=== PATIENT | male | born 1950 | race Hispanic/Latino ===

== ENCOUNTER 2016-12-17 17:21 | Emergency (ER) | payer MEDICARE, OTHER ==
[2016-12-17 17:29] VITALS: BMI 25.5
--- NOTE | 2016-12-17 19:38 | ED PDOC ---
Arrival/HPI - General Chief Complaint: Weakness/Neurological Deficit Time Seen by Provider: 12/17/16 19:05 Historian: Patient - History of Present Illness Narrative History of Present Illness (Text): 12/17/16 19:03 A 66 year old male, whose past medical history includes heroine abuse, hepatitis C and bladder cancer, presents to the emergency department complaining of feel weak and tired for the past 4 days. Patient notes feeling cold, having since congestion and begin nausea but denies any fever, chest pain , shortness of breath, abdominal pain or other complaints at this time. Patient mentions she started taking Suboxone 4 days ago. PMD: Dr. Tyler Time/Duration: Other (4 days) Symptom Onset: Sudden Symptom Course: Unchanged Quality: Other Activities at Onset: Rest Context: Home Past Medical History - Provider Review Nursing Documentation Reviewed: Yes - Infectious Disease Hx of Infectious Diseases: None - Hematological/Oncological Hx Hepatitis C: Yes - Psychiatric Hx Substance Use: Yes Family/Social History - Physician Review Nursing Documentation Reviewed: Yes Family/Social History: Unknown Family HX Smoking Status: Current Some Days Smoker Hx Alcohol Use: Yes Hx Substance Use: Yes Substance used: herroine Allergies/Home Meds Allergies/Adverse Reactions: Allergies No Known Allergies Allergy (Verified 11/29/16 08:45) Home Medications: Home Meds Medication Instructions Recorded Confirmed Buprenorphine HCl/Naloxone HCl 4 mg SL Q4 PRN 12/17/16 12/17/16 [Suboxone 4 mg-1 mg Sl Film] Review of Systems - Physician Review All systems were reviewed & negative as marked: Yes - Review of Systems Constitutional: Fatigue, Other (feeling cold). absent: Fevers ENT: Sinus Congestion Respiratory: absent: SOB Cardiovascular: absent: Chest Pain Gastrointestinal: Nausea. absent: Abdominal Pain, Vomiting Physical Exam Vital Signs Reviewed: Yes Vital Signs Temp Pulse Resp BP Pulse Ox 12/17/16 19:21 100.1 F H 12/17/16 17:21 99.2 F 62 18 148/86 94 L Temperature: Afebrile Blood Pressure: Normal Pulse: Regular Respiratory Rate: Normal Appearance: Positive for: Comfortable, Ill-Appearing Pain Distress: None Mental Status: Positive for: Alert and Oriented X 3 - Systems Exam Head: Present: Atraumatic, Normocephalic Pupils: Present: PERRL Extroacular Muscles: Present: EOMI Conjunctiva: Present: Normal Mouth: Present: Moist Mucous Membranes Neck: Present: Normal Range of Motion Respiratory/Chest: Present: Clear to Auscultation, Good Air Exchange. No: Respiratory Distress, Accessory Muscle Use Cardiovascular: Present: Regular Rate and Rhythm, Normal S1, S2. No: Murmurs Abdomen: Present: Normal Bowel Sounds. No: Tenderness, Distention, Peritoneal Signs Back: Present: Normal Inspection Upper Extremity: Present: Normal Inspection. No: Cyanosis, Edema Lower Extremity: Present: Normal Inspection. No: Edema Neurological: Present: GCS=15, CN II-XII Intact, Speech Normal Skin: Present: Warm, Dry, Normal Color. No: Rashes Psychiatric: Present: Alert, Oriented x 3, Normal Insight, Normal Concentration Medical Decision Making ED Course and Treatment: 12/17/16 19:03 Impression: A 66 year old male with generalized weakness. Differential Diagnosis include but are not limited to: Hepatitis Flare vs. opioid withdrawal vs viral illness vs gastritis Plan: -- EKG -- Chest X-ray -- Labs -- Urinalysis -- Reassess and disposition Progress Notes: Patient with no fever and otherwise unremarkable vitals. No leukocytosis is noted. Chemistry shows LFT elevation c/w his chronic hepatitis C. CT a/p with findings c/w duodenitis but otherwise negative. Patient feels better here in the ED and says he has an appointment with GI next week - will d/c on PPI and have him f/u pmd and GI. - Lab Interpretations Lab Results: 12/17/16 15:45 12/17/16 15:45 Lab Results 12/17/16 19:43: Urine Opiates Screen Negative, Urine Methadone Screen Negative, Ur Barbiturates Screen Negative, Ur Phencyclidine Scrn Negative, Ur Amphetamines Screen Negative, U Benzodiazepines Scrn Negative, U Oth Cocaine Metabols Negative, U Cannabinoids Screen Negative 12/17/16 19:43: Urine Color Yellow, Urine Appearance Sl cloudy, Urine pH 6.0, Ur Specific [place] 1.020, Urine Protein Trace H, Urine Glucose (UA) Negative, Urine Ketones Trace H, Urine Blood Large H, Urine Nitrate Negative, Urine Bilirubin Negative, Urine Urobilinogen 4.0 H, Ur Leukocyte Esterase Negative, Urine RBC 25 - 30, Urine WBC 2 - 5, Ur Epithelial Cells 0 - 2, Amorphous Sediment Few, Urine Bacteria Many, Urine Other Uyeast 12/17/16 19:40: pO2 23 L, VBG pH 7.40, VBG pCO2 48.0, VBG HCO3 29.7 H, VBG Total CO2 31.2 H, VBG O2 Sat (Calc) 44.7, VBG Base Excess 4.0 H, VBG Potassium 3.7, Glucose 105, Lactate 1.4, FiO2 21.0, Sodium 138.0, Chloride 104.0, Venous Blood Potassium 3.7 12/17/16 15:45: Sodium 139, Potassium 3.9, Chloride 98, Carbon Dioxide 29, Anion Gap 16, BUN 25 H, Creatinine 0.6, Est GFR ( Amer) > 60, Est GFR ( Non-Af Amer) > 60, Random Glucose 101, Calcium 10.0, Phosphorus 3.6, Magnesium 2.3 H, Total Bilirubin 3.0 H, AST 70 H, ALT 75 H, Alkaline Phosphatase 72, Lactate Dehydrogenase 404, Total Creatine Kinase 36, Troponin I < 0.01, NT-Pro- B Natriuret Pep 485 H, Total Protein 9.4 H, Albumin 4.7, Globulin 4.7, Albumin/ Globulin Ratio 1.0 L, Lipase 144 12/17/16 15:45: PT 11.2, INR 1.04, APTT 28.7 12/17/16 15:45: WBC 8.2 D, RBC 5.46, Hgb 18.1 H* D, Hct 50.3, MCV 92.1, MCH 33.2, MCHC 36.0, RDW 13.3, Plt Count 179, MPV 11.3 H, Gran % 69.9 H, Lymph % ( Auto) 18.2 L, [place] % (Auto) 11.7 H, Eos % (Auto) 0.1 L, Baso % (Auto) 0.1, Gran # 5.75, Lymph # 1.5, [place] # 1.0 H, Eos # 0.0, Baso # 0.01 I have reviewed the lab results: Yes - RAD Interpretation Radiology Orders: 12/17/16 19:07 CHEST PORTABLE [RAD] Stat 12/17/16 20:27 ABD & PELVIS IV CONTRAST ONLY [CT] Stat - Medication Orders Current Medication Orders: Discontinued Medications Famotidine (Pepcid) 20 mg IVP STAT STA Stop: 12/17/16 20:40 Last Admin: 12/17/16 20:53 Dose: 20 mg Sodium Chloride (Sodium Chloride 0.9%) 1,000 mls @ 999 mls/hr IV .Q1H1M STA Stop: 12/17/16 21:18 Last Admin: 12/17/16 20:58 Dose: 999 mls/hr Iohexol (Omnipaque 350 100 Ml) Confirm Administered Dose 350 mg .ROUTE .STK-MED ONE Stop: 12/17/16 20:33 Ketorolac Tromethamine (Toradol) 30 mg IVP STAT STA Stop: 12/17/16 20:39 Last Admin: 12/17/16 20:53 Dose: 30 mg Ondansetron HCl (Zofran Inj) 4 mg IVP STAT STA Stop: 12/17/16 20:39 Last Admin: 12/17/16 20:53 Dose: 4 mg - Scribe Statement The provider has reviewed the documentation as recorded by the Yrn Orantes Provider Oliviaibe Attestation: All medical record entries made by the Yrn were at my direction and personally dictated by me. I have reviewed the chart and agree that the record accurately reflects my personal performance of the history, physical exam, medical decision making, and the department course for this patient. I have also personally directed, reviewed, and agree with the discharge instructions and disposition. Disposition/Present on Arrival - Present on Arrival Any Indicators Present on Arrival: No History of DVT/PE: No History of Uncontrolled Diabetes: No Urinary Catheter: No History of Decub. Ulcer: No History Surgical Site Infection Following: None - Disposition Have Diagnosis and Disposition been Completed?: Yes Diagnosis: Duodenitis Disposition: HOME/ ROUTINE Disposition Time: 23:15 Patient Plan: Discharge Condition: GOOD Discharge Instructions (ExitCare): Duodenitis (ED), Diet for Ulcers and Gastritis (ED) Additional Instructions: Avoid alcohol and drug use. Drink plenty of fluids. Recommend a more bland diet as well. Take the medications as prescribed. Follow up with your primary care doctor and Dr. Keller as scheduled. Return to the emergency department if any new concerning symptoms. Prescriptions: Pantoprazole [Protonix] 1 tab PO DAILY #20 ect Referrals: Jayson AWAN,Oliver Pool MD [Primary Care Provider] - Follow up with primary
[2016-12-17 19:40] LABS: ADD MANUAL DIFF? NO
[2016-12-17 20:00] LABS: URINE BILIRUBIN NEGATIVE (NEGATIVE); URINE GLUCOSE (UA) NEGATIVE (NEGATIVE); URINE LEUKOCYTE ESTERASE NEGATIVE Leu/uL (NEGATIVE)
[2016-12-17 20:01] LABS: BASO # 0.01 K/mm3 (0.0-2.0); BASO % 0.1 % (0.0-3.0); EOS % 0.1 % (1.5-5.0); GRAN # 5.75 (1.4-6.5); GRAN % 69.9 % (50.0-68.0); HEMATOCRIT 50.3 % (42.0-52.0); LYMPH # 1.5 (1.2-3.4); LYMPH % 18.2 % (22.0-35.0); MEAN CELL VOLUME 92.1 fL (80.0-105.0); MEAN CORPUSCULAR HEMOGLOBIN 33.2 pg (25.0-35.0); MEAN PLATELET VOLUME 11.3 fl (7.0-11.0); MONO % 11.7 % (1.0-6.0); PLATELET COUNT 179 10^3/uL (120.0-450.0); RED CELL DISTRIBUTION WIDTH 13.3 % (11.5-14.5); WHITE BLOOD COUNT 8.2 10^3/ul (4.5-11.0)
[2016-12-17 20:02] LABS: ALKALINE PHOSPHATASE 72 U/L (38-133); ALT/SGPT 75 U/L (7-56); AST/SGOT 70 U/L (15-59); BLOOD UREA NITROGEN 25 mg/dL (7-21); CARBON DIOXIDE 29 mmol/L (21-33); CHLORIDE 98 mmol/L (98-107); GFR AFRICAN-AMERICAN > 60; GLUCOSE,RANDOM 101 mg/dL (70-110); LIPASE 144 U/L (23-300); MAGNESIUM 2.3 mg/dL (1.7-2.2); PHOSPHOROUS 3.6 mg/dL (2.5-4.5); POTASSIUM 3.9 mmol/L (3.6-5.0); SODIUM 139 mmol/L (132-148); TOTAL PROTEIN 9.4 g/dL (5.8-8.3)
[2016-12-17 20:08] LABS: INR 1.04 (0.93-1.08); PARTIAL THROMBOPLASTIN TIME 28.7 Seconds (23.7-30.8)
[2016-12-17 20:11] LABS: URINE APPEARANCE SL CLOUDY (CLEAR)
[2016-12-17 20:12] LABS: URINE KETONE TRACE mg/dL (NEGATIVE)
[2016-12-17 20:13] LABS: URINE BLOOD LARGE (NEGATIVE); URINE PROTEIN TRACE mg/dL (<30 mg/dL)
[2016-12-17 20:14] LABS: TROPONIN I < 0.01 ng/mL
[2016-12-17 20:15] LABS: URINE COLOR YELLOW (YELLOW)
[2016-12-17] MEDS ORDERED: Sodium Chloride 0.9% 1,000 ML IV STA (20:18)
[2016-12-17 20:32] LABS: URINE BACTERIA MANY (NEG); URINE EPITHELIAL CELLS 0 - 2 /hpf (0-5); URINE RBC 25 - 30 /hpf (0-2)
[2016-12-17] MEDS ORDERED: Iohexol 350 MG/100 ML VIAL ONE (20:32)
[2016-12-17 20:33] LABS: URINE AMORPHOUS SEDIMENT FEW
--- NOTE | 2016-12-17 22:13 | CT ---
EXAM: CT Abdomen and Pelvis With Intravenous Contrast CLINICAL HISTORY: 66 years old, male; Pain; Abdominal pain; Prior surgery; Surgery type: Bowel resection; Additional info: Nausea, abd discomfort TECHNIQUE: Axial computed tomography images of the abdomen and pelvis with intravenous contrast. This CT exam was performed using one or more of the following dose reduction techniques: automated exposure control, adjustment of the mA and/or kV according to patient size, and/or use of iterative reconstruction technique. Coronal and sagittal reformatted images were created and reviewed. CONTRAST: 94 mL of OMNI 350 administered intravenously. COMPARISON: CT - ABDOMEN,PELVIS W/WO CONTRAST 11/17/2016 10:21:50 AM FINDINGS: Lower thorax: Mild atelectasis/scarring. ABDOMEN: Liver: Unremarkable. No mass. Gallbladder and bile ducts: Calcified gallstone. No ductal dilation. Pancreas: No ductal dilation. No mass. Spleen: No splenomegaly. Adrenals: Mild hypertrophy of adrenal glands, stable. Kidneys and ureters: Few too small to characterize lesions within kidneys. Few small renal calculi. No hydronephrosis. Stomach and bowel: Small bladder diverticulum. Postsurgical changes of sigmoid colon. Moderate mural thickening of duodenum. Mild stranding within adjacent fat. No obstruction. Appendix: No findings to suggest acute appendicitis. PELVIS: Bladder: Unremarkable. Reproductive: Unremarkable as visualized. ABDOMEN and PELVIS: Intraperitoneal space: No significant fluid collection. No free air. Bones/joints: Mild chronic compression deformities T12, L5 vertebral bodies. Soft tissues: Few small ventral hernias containing fat. Small umbilical hernia containing fat. Tiny inguinal hernias containing fat. Vasculature: Mild atherosclerotic disease. No abdominal aortic aneurysm. Lymph nodes: No pathologically enlarged lymph nodes. IMPRESSION: 1. Findings compatible with duodenitis. Clinical correlation is needed. 2. Incidental/non-acute findings are described above.
[2016-12-18 01:48] VITALS: BP 145/92; PULSE 55; RESP 17; TEMP 98.2; O2SAT 98
--- NOTE | 2016-12-18 07:48 | RAD ---
HISTORY: Sepsis Patient COMPARISON: 11/29/2016 FINDINGS: LUNGS: Central and upper lobe emphysematous changes are suggested -similar appearing. Trace minimal apical pleural thickening is also suspect -unchanged. No interval consolidation suggested. PLEURA: As above. No pneumothorax CARDIOVASCULAR: Normal heart size. Tortuous and partly calcified thoracic aorta OSSEOUS STRUCTURES: Thoracic spondylosis and generalized osteopenia VISUALIZED UPPER ABDOMEN: Normal. OTHER FINDINGS: None. IMPRESSION: No active disease. . Emphysema inferred
--- NOTE | 2016-12-18 12:53 | CARD ---
APPROVED REPORT EKG Measurement Heart [id number] <Conclusion> Sinus bradycardia with premature atrial complexes with aberrant conduction Possible Left atrial enlargement Borderline ECG
== END 2016-12-18 01:48 | disposition home or self-care (01) ==
LOC: ED 17:21
DX: K29.80 Duodenitis without bleeding (principal); B19.20 Unspecified viral hepatitis C without hepatic coma; F11.10 Opioid abuse, uncomplicated
CPT/HCPCS: 71010; 74177; 80053; 81001; 82550; 82803; 83615; 83690; 83735; 83880; 84100; 84484; 85025; 85610; 85730; 87040; 93005; 96361; 96374; 96375; 99285; G0480; J1885; J2405; J7040; Q9967

== ENCOUNTER 2017-01-13 07:52 | Day surgery (SDC) | payer MEDICARE, OTHER ==
[2017-01-13] MEDS ORDERED: Midazolam 2 MG/2 ML VIAL ONE (10:42)
[2017-01-13] MEDS ORDERED: Propofol 10 mg/ml Inj (20 ML) ONE ×2 (10:42→11:08)
[2017-01-13] MEDS ORDERED: Liquid Adhesive TOP ONE (10:42)
[2017-01-13] MEDS ORDERED: cefTRIAXone (Rocephin) 1 gm Inj ONE (10:42)
[2017-01-13] MEDS ORDERED: Lidocaine 2% Inj (20ml) ONE (10:45)
[2017-01-13] MEDS ORDERED: Lactated Ringer's 1,000 ML IV SCH (11:57)
[2017-01-13 12:37] VITALS: TEMP 97.9
--- NOTE | 2017-01-13 13:17 | OP ---
PROCEDURE DATE: 01/13/2017 PREOPERATIVE DIAGNOSIS: Bladder tumors. POSTOPERATIVE DIAGNOSIS: Bladder tumors. PROCEDURE: Cystoscopy, transurethral resection and fulguration of multiple bladder tumors. ATTENDING SURGEON: Dr. Sunny Pike ANESTHESIA: General. SPECIMENS: Bladder tumor chips were sent to pathology. DRAINS: A 22-[place] 3-way Peña catheter. COMPLICATIONS: There were none. OPERATIVE FINDINGS: After informed consent was obtained, the patient was taken to the operating room and placed on the operating table and anesthesia was administered. The patient was then placed in t he dorsal lithotomy position and prepped and draped in usual sterile fashion. The patient received i ntravenous antibiotics prior to start of the procedure. A 26-Belizean resectoscope with a visualizing obturator was placed in the patient's urethra and advanced proximally under direct vision until the b ladder was entered. A full survey inspection of bladder was then performed, which revealed multiple papillary bladder tumors. The tumors appeared low lying, most likely low grade. They were located o n the right bladder neck and right floor extending onto the right sidewall. They were on the posteri or wall and the right upper side wall. There were a few small satellite tumors on the left posterior wall. Both ureteral orifices were visualized and appeared away from the areas of tumor. There was a large diverticulum noted on the right posterior wall. There was tumor lining the wall of the diver ticulum and inside the diverticulum there was also papillary tumor noted. At this point, using the r esecting loop, the larger tumor burden on the right lateral wall into the right bladder neck area was resected. The patient was having an obturator reflex, so care was taken to control the depth. Tumo r was able to be resected in its entirety. In total, there was over a 7 cm area of the bladder which was covered with tumor. After the bulk of the larger tumor had been resected, the loop was changed to a rollerball electrode. The base of the larger tumor burden was then completely fulgurated. The surrounding areas with some superficial papillary growth were also fulgurated. Any remaining superfi cial tumor which was noted was fulgurated using the rollerball along with the areas of surrounding no rmal mucosa. An evacuating device was then used to remove the tumor chips and debris from the bladde r, which were sent to pathology as a specimen. A final inspection was made. Any small bleeding poin ts again were controlled using the rollerball electrode. There were no chips or debris remaining in the bladder and at this point, the procedure was completed. The tumor in the diverticulum had been c ompletely fulgurated using the rollerball along with the tumor on the wall of the diverticulum. Both ureteral orifices were visualized. They had not been resected or cauterized. At this point, the re sectoscope was removed. A 22-[place]an 3-way Peña catheter was passed and placed to continuous bladder irrigation. The patient tolerated the procedure well and was taken to the recovery room awake and i n stable condition. Sunny Pike MD cc: [phone] TT: 01/13/2017 13:16:50 sn
[2017-01-13 14:51] VITALS: BP 124/79; PULSE 78; RESP 18; O2SAT 97
== END 2017-01-13 16:00 | disposition home or self-care (01) ==
LOC: SDS 07:52
PROVIDERS: ATTEND Urology
DX: D49.4 Neoplasm of unspecified behavior of bladder (principal); R31.9 Hematuria, unspecified; I49.9 Cardiac arrhythmia, unspecified; F17.200 Nicotine dependence, unspecified, uncomplicated; K75.9 Inflammatory liver disease, unspecified; F10.10 Alcohol abuse, uncomplicated; F19.10 Other psychoactive substance abuse, uncomplicated
CPT/HCPCS: 52234; 88307; G0480 ×8; J0131; J0696; J2250; J2405; J2704; J3010; J7120 ×2

== ENCOUNTER 2017-01-14 19:42 | Inpatient (IN) | payer MEDICARE, OTHER ==
[2017-01-14 19:43] VITALS: BMI 25.5
--- NOTE | 2017-01-14 22:38 | ED PDOC ---
Arrival/HPI - General Chief Complaint: Male Genitourinary Time Seen by Provider: 01/14/17 20:01 Historian: Patient - History of Present Illness Narrative History of Present Illness (Text): 01/14/17 22:38 Ramez Overton is a 66 year old male, with a history of heroin use, hepatitis C and bladder cancer, presents to the emergency department complaining of suprapubic pressure and decreased urinary output. Patient had a cystoscopy done by yesterday and had a Mccormick catheter placed after the procedure. Patient states he has decreased urine output since. Denies any fever, chills, headache, dizziness, chest pain, shortness of breath, nausea, vomiting, diarrhea , or any other complaints at this time. Time/Duration: < week Symptom Onset: Gradual Activities at Onset: Light Context: Home Past Medical History - Provider Review Nursing Documentation Reviewed: Yes - Infectious Disease Hx of Infectious Diseases: None - Cardiac Hx Pacemaker: No - Neurological Hx Paralysis: No - Hematological/Oncological Hx Blood Transfusions: No - Musculoskeletal/Rheumatological Hx Musculoskeletal Disorders: No - Psychiatric Hx Emotional Abuse: No Hx Physical Abuse: No Hx Substance Use: Yes (ACTIVE IV HEROIN USE("NONE X 3 WEEKS WITH 1-MISHAP")) - Anesthesia Hx Anesthesia Reactions: No Hx Malignant Hyperthermia: No - Suicidal Assessment Feels Threatened In Home Enviroment: No Family/Social History - Physician Review Nursing Documentation Reviewed: Yes Family/Social History: No Known Family HX Smoking Status: Current Some Days Smoker Hx Alcohol Use: Yes Hx Substance Use: Yes (ACTIVE IV HEROIN USE("NONE X 3 WEEKS WITH 1-MISHAP")) Substance used: herroine Allergies/Home Meds Allergies/Adverse Reactions: Allergies No Known Allergies Allergy (Verified 11/29/16 08:45) Home Medications: Home Meds Medication Instructions Recorded Confirmed Buprenorphine HCl/Naloxone HCl 4 mg SL BID 12/17/16 01/15/17 [Suboxone 4 mg-1 mg Sl Film] Multivit-Min/FA/Lycopen/Lutein 1 tab PO DAILY 01/07/17 01/15/17 [Centrum Silver Men Tablet] [place]-3 Fatty Acids/Fish Oil 1 cap PO DAILY 01/07/17 01/15/17 [[place] 3 Fish Oil Softgel] Review of Systems - Physician Review All systems were reviewed & negative as marked: Yes - Review of Systems Constitutional: Normal. absent: Fatigue, Fevers Respiratory: Normal. absent: SOB, Cough Cardiovascular: Normal. absent: Chest Pain, Palpitations Gastrointestinal: Abdominal Pain (suprapubic pressure). absent: Diarrhea, Nausea, Vomiting Genitourinary Male: Urinary Output Changes (decreased urinary output ) Neurological: Normal. absent: Headache, Dizziness Psychiatric: Normal Physical Exam Vital Signs Reviewed: Yes Vital Signs Temp Pulse Resp BP Pulse Ox 01/15/17 04:04 98.5 F 01/15/17 02:30 96 H 18 155/84 H 95 01/14/17 23:09 89 16 135/91 H 96 01/14/17 19:44 98.2 F 78 18 138/74 100 Temperature: Afebrile Blood Pressure: Normal Pulse: Regular Respiratory Rate: Normal Appearance: Positive for: Well-Appearing, Non-Toxic, Comfortable Pain Distress: None Mental Status: Positive for: Alert and Oriented X 3 - Systems Exam Head: Present: Atraumatic, Normocephalic Pupils: Present: PERRL Conjunctiva: Present: Normal Mouth: Present: Moist Mucous Membranes Respiratory/Chest: Present: Clear to Auscultation, Good Air Exchange. No: Respiratory Distress, Accessory Muscle Use Cardiovascular: Present: Regular Rate and Rhythm, Normal S1, S2. No: Murmurs Abdomen: Present: Normal Bowel Sounds. No: Tenderness, Distention, Peritoneal Signs, Rebound Genitourinary Male: Present: Other (mccormick catheter. ). No: Lesions, Penile Discharge, Testicle Tenderness, Penile Swelling, Masses, Erythema, Hernias Upper Extremity: Present: Normal Inspection. No: Cyanosis, Edema Lower Extremity: Present: Normal Inspection. No: Edema Neurological: Present: GCS=15, CN II-XII Intact, Speech Normal, Motor Func Grossly Intact, Normal Sensory Function Skin: Present: Warm, Dry, Normal Color. No: Rashes Psychiatric: Present: Alert, Oriented x 3, Normal Insight, Normal Concentration Medical Decision Making ED Course and Treatment: 01/14/17 22:49 Impression: A 66 year old male who presents to the emergency department complaining of suprapubic pressure and decreased urinary output. kami d/w dr horner will obs for dehydration Plan: -- Bladder scan. -- Reassess and disposition Progress Notes: 01/15/17 04:20 - Lab Interpretations Lab Results: 01/14/17 23:45 01/14/17 23:45 Lab Results 01/14/17 23:50: Urine Color Red, Urine Appearance Cloudy, Urine pH 6.5, Ur Specific [place] 1.020, Urine Protein >=300 H, Urine Glucose (UA) Negative, Urine Ketones 15 H, Urine Blood Large H, Urine Nitrate Positive H, Urine Bilirubin Small H, Urine Urobilinogen 1.0 H, Ur Leukocyte Esterase Moderate H, Urine RBC 15 - 20, Urine WBC 10 - 15, Ur Epithelial Cells 0 - 2, Urine Bacteria Mod 01/14/17 23:45: Sodium 128 L, Potassium 4.7, Chloride 96 L, Carbon Dioxide 22, Anion Gap 15, BUN 36 H, Creatinine 2.1 H, Est GFR ( Amer) 39, Est GFR ( Non-Af Amer) 32, Random Glucose 127 H, Calcium 9.7, Total Bilirubin 1.5 H, AST 44, ALT 83 H, Alkaline Phosphatase 101, Total Protein 8.1, Albumin 4.1, Globulin 4.0, Albumin/Globulin Ratio 1.0 L 01/14/17 23:45: WBC 13.7 H D, RBC 4.93, Hgb 16.3, Hct 43.6, MCV 88.4, MCH 33.1, MCHC 37.4 H, RDW 13.0, Plt Count 225, MPV 10.6, Neutrophils % (Manual) 88 H, Band Neutrophils % 1, Lymphocytes % (Manual) 6 L, Monocytes % (Manual) 5, Platelet Evaluation Normal - Medication Orders Current Medication Orders: Acetaminophen (Tylenol 325mg Tab) 650 mg PO Q4H PRN PRN Reason: Fever >100.5 F Cefepime HCl (Maxipime 1gm) 1 gm in 100 mls @ 100 mls/hr IVPB Q24H ERICH PRN Reason: Protocol Last Admin: 01/15/17 03:18 Dose: 100 mls/hr Sodium Chloride (Sodium Chloride 0.9%) 1,000 mls @ 100 mls/hr IV .Q10H STA Stop: 01/15/17 13:02 - Scribe Statement The provider has reviewed the documentation as recorded by the Yrn Andrews Provider Attestation: All medical record entries made by the Oliviaibe were at my direction and personally dictated by me. I have reviewed the chart and agree that the record accurately reflects my personal performance of the history, physical exam, medical decision making, and the department course for this patient. I have also personally directed, reviewed, and agree with the discharge instructions and disposition. Disposition/Present on Arrival - Present on Arrival Any Indicators Present on Arrival: No History of DVT/PE: No History of Uncontrolled Diabetes: No Urinary Catheter: No History of Decub. Ulcer: No History Surgical Site Infection Following: None - Disposition Have Diagnosis and Disposition been Completed?: Yes Diagnosis: Dehydration, Urinary tract infection Disposition: HOSPITALIZED Disposition Time: 01:00 Condition: FAIR
[2017-01-14 23:56] LABS: HEMATOCRIT 43.6 % (42.0-52.0); MEAN CELL VOLUME 88.4 fL (80.0-105.0); MEAN CORPUSCULAR HEMOGLOBIN 33.1 pg (25.0-35.0); MEAN CORPUSCULAR HGB CONC 37.4 g/dl (31.0-37.0); MEAN PLATELET VOLUME 10.6 fl (7.0-11.0); PLATELET COUNT 225 10^3/uL (120.0-450.0); WHITE BLOOD COUNT 13.7 10^3/ul (4.5-11.0)
[2017-01-15 00:07] LABS: BILIRUBIN,TOTAL 1.5 mg/dL (0.2-1.3); CALCIUM 9.7 mg/dL (8.4-10.5); POTASSIUM 4.7 mmol/L (3.6-5.0); TOTAL PROTEIN 8.1 g/dL (5.8-8.3)
[2017-01-15 00:33] LABS: ADD MANUAL DIFF? YES
[2017-01-15 00:59] LABS: PH,URINE 6.5 (4.7-8.0); URINE BILIRUBIN SMALL (NEGATIVE); URINE BLOOD LARGE (NEGATIVE); URINE GLUCOSE (UA) NEGATIVE (NEGATIVE); URINE KETONE 15 mg/dL (NEGATIVE); URINE LEUKOCYTE ESTERASE MODERATE Leu/uL (NEGATIVE); URINE PROTEIN >=300 mg/dL (<30 mg/dL)
[2017-01-15 01:17] LABS: URINE APPEARANCE CLOUDY (CLEAR); URINE COLOR RED (YELLOW)
[2017-01-15 01:19] LABS: URINE EPITHELIAL CELLS 0 - 2 /hpf (0-5); URINE RBC 15 - 20 /hpf (0-2)
[2017-01-15 01:20] LABS: URINE BACTERIA MOD (NEG)
[2017-01-15 01:22] LABS: BAND 1 % (0-2); NEUTROPHIL 88 % (50.0-70.0); PLATELET ESTIMATE NORMAL (NORMAL)
[2017-01-15] MEDS ORDERED: Cefepime 1gm in NS 100ml 1 GM/100 ML BAG IVPB SCH (01:30)
[2017-01-15] MEDS ORDERED: Sodium Chloride 0.9% 1,000 ML IV STA (03:03)
[2017-01-15] MEDS ORDERED: Morphine 2 mg/ml ISec IM PRN (07:57)
[2017-01-15] MEDS ORDERED: Morphine 2 mg/ml ISec IVP PRN (08:14)
[2017-01-15] MEDS ORDERED: Vancomycin 1gm in NS 250ml 1 GM/250 ML BAG IVPB STA (09:44)
[2017-01-15] MEDS: Cefepime 1gm in NS 100ml 1 GM/100 ML BAG IVPB SCH ×2 (10:01→22:44)
[2017-01-15] MEDS: Sodium Chloride 0.9% 1,000 ML IV SCH (10:16)
--- NOTE | 2017-01-15 11:50 | HP ---
HISTORY OF PRESENT ILLNESS: The patient is a 66-year-old man with a past medical history of newly diagnosed high-grade papillary urothelial carcinoma and hepatitis C (untreated) who presented to [facility] Emergency Department 1 day after undergoing cystoscopy with TURBT for evaluation of gross hematuria. The patient has been closely followed by Dr. Chavez of urology for his complaint of gross hematuria. The patient was found to have a bladder mass and arrangements were made to schedule for a cystoscopy with biopsy which the patient successfully underwent on Friday (01/13/2017). Final pathology report demonstrated high-grade papillary urothelial carcinoma. The patient was discharged to home with no complications noted during the time of the procedure. Shortly after discharge to home, he developed mild suprapubic tenderness and over the course of the next several hours developed increasing discomfort associated with subjective fevers and chills. He also reported persistent drainage of initially bloody urine which subsequently changed to a tea colored urine. Given the intensity of the pain, he called 911 and was brought to the Emergency Department for further evaluation. Upon arrival to the ED, he was noted to be afebrile and hemodynamically stable however initial laboratory studies demonstrated leukocytosis with a WBC of 13.7 with left shift , as well as acute kidney injury with a BUN of 36 and creatinine of 2.1. The patient was started on IV antibiotics, IV fluid hydration and subsequently admitted to the general medical [facility] for continued management. PAST MEDICAL HISTORY: As per HPI, also, history of atrial fibrillation s/p cardioversion, diverticulosis with perforation s/p partial colectomy, s/p colostomy with reversal and history of chest tube placement secondary to empyema. ALLERGIES: No known drug allergies. MEDICATIONS: [place] 3 fatty acid 1 capsule daily, multivitamin 1 capsule daily, Protonix 40 mg p.o. daily and Suboxone 4 mg sublingual b.i.d. FAMILY HISTORY: Noncontributory. SOCIAL HISTORY: The patient reports former IV heroin use (last use approximately 3 weeks ago) and social alcohol use. He denies tobacco use. REVIEW OF SYSTEMS: A 14 point review of systems is negative except as per HPI. PHYSICAL EXAMINATION: VITAL SIGNS: Temperature 98.3, pulse 102, blood pressure 129/84, respiratory rate 20, oxygen saturation 95% on room air. GENERAL: Elderly man appearing his stated age, lying in bed in mild distress secondary to suprapubic tenderness. HEENT: Normocephalic, atraumatic, PERRL, EOMI, no scleral icterus, no conjunctival pallor. NECK: No JVD, no bruits. LUNGS: Clear to auscultation. CARDIOVASCULAR: Regular rate and rhythm. Normal S1 and S2. ABDOMEN: Normoactive bowel sounds. Soft, tender to palpation to lower abdomen with voluntary guarding. No rigidity, no tympany. GENITOURINARY: Peña catheter remains in place with no oozing or discharge from the urethral meatus and jhon colored urine is noted in the Peña catheter bag. EXTREMITIES: No edema. NEUROLOGIC: Awake, alert and oriented x 3. No focal motor deficits. LABORATORY DATA: WBC 13.7 with 88% neutrophils, hemoglobin 16, hematocrit 44, platelets 225. Sodium 128, potassium 4.7, chloride 96, bicarbonate 22, BUN 36, creatinine 2.1, glucose 127. Urinalysis demonstrates red cloudy urine with large blood, positive nitrites and moderate leukocyte esterase. ASSESSMENT: The patient is a 66-year-old man who recently underwent cystoscopy with transurethral resection of bladder tumor for evaluation of gross hematuria secondary to bladder mass, who was subsequently found to have high-grade papillary urothelial carcinoma who presented to [facility] with increased suprapubic pain and who was admitted to the general medical luther for continued analgesic control. PLAN: 1. High grade papillary urothelial carcinoma, status post cystoscopy. Dr. Pike of urology has been consulted for further evaluation and recommendations and to ensure that there are no complications post-procedure given the patient's presentation with significant pain. The patient has been started on morphine 2 mg IV q. 4 hours p.r.n. pain. 2. Hepatitis C. The patient has been newly diagnosed with hepatitis C and has not initiated treatment. His most recent viral load was greater than 7.7 million. The patient has been referred to Dr. Keller of gastroenterology for initiation of treatment; however, he will need to remain off IV drugs prior to initiation of treatment. Genotype is pending. The patient does not appear to be decompensated from the hepatitis standpoint. 3. Systemic inflammatory response syndrome, etiology likely secondary to genitourinary source given recent instrumentation. The patient has been started on cefepime. We will consult Dr. Moctezuma for further evaluation and recommendations. Procalcitonin level has been ordered and pending. 4. Acute kidney injury. Labs demonstrate a BUN of 36 and a creatinine of 2.1, whereas labs obtained preoperatively demonstrated normal renal function. As above, Dr. Pike has been consulted for evaluation for possible obstructive uropathy. We will continue with gentle IV fluid hydration and monitor strict ins and outs. 5. Hyponatremia, etiology likely secondary to poor p.o. intake. Continue with normal saline at 125 mL per hour. 6. Heroin dependence. The patient states that he has been sober for the past 2 -1/2 to 3 weeks. He is on Suboxone on outpatient basis; however, given that we will be acutely treating his pain with morphine, the patient was explained that he will not require Suboxone at the same time. 7. Atrial fibrillation, status post cardioversion. The patient remains in normal sinus rhythm and is not on any anticoagulation therapy. 8. Prophylaxis. Continue with Protonix for GI prophylaxis. DVT prophylaxis not indicated as the patient is ambulatory. CODE STATUS: Full code. Oliver Tyler MD cc: [phone] TT: 01/15/2017 11:49:53 akbar EDOUARD
[2017-01-15] MEDS ORDERED: Morphine 2 mg/ml ISec IVP STA (12:11)
[2017-01-15] MEDS: Morphine 4 mg/ml ISec IVP PRN ×3 (15:03→22:51)
--- NOTE | 2017-01-15 17:15 | CP.PCM.CON ---
History of Present Illness - History of Present Illness History of Present Illness: 66 year old male with PMH of hepatitis C, active heroin use, bladder cancer had cystoscopy done by Dr. Pike and a Peña was placed afterwards. Since the procedure he has been complaining of suprapubic pain and decreased urine output. He also noted some hematuria. The patient denies fever or chills, no nausea or vomiting, no flank pain, no headache or dizziness, no chest pain, no SOB, no cough or colds, no dysphagia, no abdominal pain. Infectious Diseases consult is requested to further evaluate and manage. Review of Systems - Review of Systems All systems: reviewed and no additional remarkable complaints except (as per HPI ) Past Patient History - Infectious Disease Hx of Infectious Diseases: None - Past Social History Smoking Status: Former Smoker - CARDIAC Hx Pacemaker: No - NEUROLOGICAL Hx Paralysis: No - HEMATOLOGICAL/ONCOLOGICAL Hx Hepatitis C: Yes - MUSCULOSKELETAL/RHEUMATOLOGICAL Hx Musculoskeletal Disorders: No Hx Falls: Yes - PSYCHIATRIC Hx Emotional Abuse: No Hx Physical Abuse: No Other/Comment: substance abuse: active heroin user - SURGICAL HISTORY Hx Surgeries: Yes - ANESTHESIA Hx Anesthesia Reactions: No Hx Malignant Hyperthermia: No Meds Allergies/Adverse Reactions: Allergies Allergy/AdvReac Type Severity Reaction Status Date / Time No Known Allergies Allergy Verified 11/29/16 08:45 - Medications Medications: Current Medications Acetaminophen (Tylenol 325mg Tab) 650 mg PO Q4H PRN PRN Reason: Fever >100.5 F Cefepime HCl (Maxipime 1gm) 1 gm in 100 mls @ 100 mls/hr IVPB Q24H ERICH PRN Reason: Protocol Last Admin: 01/15/17 03:18 Dose: 100 mls/hr Sodium Chloride (Sodium Chloride 0.9%) 1,000 mls @ 125 mls/hr IV .Q8H [facility] Stop: 01/17/17 08:46 Morphine Sulfate (Morphine) 2 mg IVP Q4H PRN PRN Reason: Pain, severe (8-10) Pantoprazole Sodium (Protonix Inj) 40 mg IVP DAILY [facility] Physical Exam - Constitutional Appears: Non-toxic, No Acute Distress - Head Exam Head Exam: NORMAL INSPECTION - ENT Exam ENT Exam: Mucous Membranes Moist - Neck Exam Neck exam: Negative for: Lymphadenopathy, Meningismus - Respiratory Exam Respiratory Exam: Decreased Breath Sounds - Cardiovascular Exam Cardiovascular Exam: +S1, +S2 - GI/Abdominal Exam GI & Abdominal Exam: Soft. absent: Tenderness - Exam Exam: Bladder Distension (with suprapubic tenderness) Results - Vital Signs Recent Vital Signs: Last Vital Signs Temp 98.3 F 01/15/17 09:08 Pulse 112 H 01/15/17 09:08 Resp 22 01/15/17 09:08 BP 129/84 01/15/17 09:08 Pulse Ox 95 01/15/17 09:08 - Labs Result Diagrams: 01/14/17 23:45 01/14/17 23:45 Assessment & Plan - Assessment and Plan (Free Text) Plan: Assessment Consider severe sepsis with acute renal failure due to urinary tract infection in a patient who just underwent cystoscopy hepatitis C active heroin use bladder cancer Plan Started Cefepime and a dose of IV Vancomycin pending blood and urine cx; will get CT A/P will monitor clinically
--- NOTE | 2017-01-15 18:44 | PN ---
DATE: 01/15/2017 The patient is seen in his room at [facility]. The patient recently had a transurethral resection of bladder tumor which was done 2 days ago. The patient presented to the Emergency Room la st night as he was feeling some suprapubic pain along with questionable fever and chills. The patien t has a history of current IV narcotics. He was admitted for pain management. The Peña catheter re russ in place, it was scheduled to be removed today. The patient currently appears comfortable. He is seen in his room. PHYSICAL EXAMINATION: GENERAL: He is in no acute distress. VITAL SIGNS: He is febrile with temperature of 98.3 this morning, pulse 102, BP 129/84, respirations 20. ABDOMEN: Soft. There is some mild suprapubic tenderness. There is no rebound or guarding. GENITALIA: Phallus is normal. Peña catheter is in place. It is draining dark colored urine. LABORATORY DATA: WBC count is 13.7. Creatinine is elevated at 2.1. BNP is elevated at 485. BUN vilma vated at 36. No pertinent radiologic studies have been done. IMPRESSION AND PLAN: This is a 66-year-old male who recently had a transurethral resection of bladde r tumor. The patient has a history of active hepatitis C which has not been treated as he has been o ccasionally using IV narcotics. Urologically I would leave the Peña catheter in place for now as natalya demario has been admitted. I would start patient on fluids as he appears dehydrated and patient can re ceive pain medication. He does not have an acutely surgical abdomen and his pain appears to be from the bladder tumor resection and indwelling Peña catheter. I would plan on removing the Peña cathet er tomorrow morning for a voiding trial. Blood work should be repeated after the patient has been hy drated and receiving antibiotics. He has been afebrile. If he does well with hydration and his pain can be controlled, the patient can likely be discharged after the catheter is removed and he is void ing spontaneously. I would repeat his blood work to see if his renal function returns to normal with hydration. We will continue to follow the patient with you while he is an inpatient. Sunny Pike MD cc: [phone] TT: 01/15/2017 18:43:35 Confirmation # [id number] Dictation # [id number] jn
[2017-01-16] MEDS: Morphine 4 mg/ml ISec IVP PRN ×4 (04:01→20:46)
[2017-01-16] MEDS: Sodium Chloride 0.9% 1,000 ML IV SCH ×2 (04:03→20:49)
[2017-01-16] MEDS ORDERED: Barium Sulfate Susp 2.1% w/v, 2.0% w/w 450 mL Bottle PO ONE (06:55)
[2017-01-16 07:32] LABS: ADD MANUAL DIFF? NO
[2017-01-16 07:40] LABS: BASO # 0.01 K/mm3 (0.0-2.0); BASO % 0.2 % (0.0-3.0); EOS % 0.4 % (1.5-5.0); GRAN # 3.57 (1.4-6.5); GRAN % 63.1 % (50.0-68.0); HEMATOCRIT 37.2 % (42.0-52.0); LYMPH # 1.3 (1.2-3.4); LYMPH % 22.8 % (22.0-35.0); MEAN CELL VOLUME 91.4 fL (80.0-105.0); MEAN CORPUSCULAR HEMOGLOBIN 32.2 pg (25.0-35.0); MEAN CORPUSCULAR HGB CONC 35.2 g/dl (31.0-37.0); MEAN PLATELET VOLUME 10.6 fl (7.0-11.0); MONO # 0.8 (0.1-0.6); MONO % 13.5 % (1.0-6.0); PLATELET COUNT 174 10^3/uL (120.0-450.0); RED CELL DISTRIBUTION WIDTH 13.3 % (11.5-14.5); WHITE BLOOD COUNT 5.7 10^3/ul (4.5-11.0)
[2017-01-16 08:01] LABS: ALKALINE PHOSPHATASE 72 U/L (38-133); ALT/SGPT 68 U/L (7-56); AST/SGOT 43 U/L (15-59); BILIRUBIN,TOTAL 1.2 mg/dL (0.2-1.3); BLOOD UREA NITROGEN 16 mg/dL (7-21); CALCIUM 8.8 mg/dL (8.4-10.5); CARBON DIOXIDE 29 mmol/L (21-33); CHLORIDE 105 mmol/L (95-110); GFR AFRICAN-AMERICAN > 60; GLUCOSE,RANDOM 89 mg/dL (70-110); POTASSIUM 4.2 mmol/L (3.6-5.0); SODIUM 138 mmol/L (132-148); TOTAL PROTEIN 6.2 g/dL (5.8-8.3)
--- NOTE | 2017-01-16 09:16 | PN ---
DATE: 01/16/2017 SUBJECTIVE: The patient seen and examined at bedside on the general medical [facility]. No acute events overnight. He remains afebrile and hemodynamically stable. He reports significant improvement in his lower abdominal/suprapubic pain since admission. The patient is noted to have good urinary output with approximately 1 liter of urine noted in his Peña. He is pending CT of the abdomen and pelvis this morning to rule out pyelonephritis and is also pending removal of Peña catheter with Dr. Pike for spontaneous voiding trial. Otherwise, he states he feels okay and offers no complaints. OBJECTIVE: VITAL SIGNS: Temperature 98, pulse 81, blood pressure 135/90, respiratory rate 20, oxygen saturation 96% on room air. GENERAL: No apparent distress. HEENT: PERRL. EOMI. No scleral icterus. No conjunctival pallor. NECK: No JVD, no bruits. LUNGS: Clear to auscultation. CARDIOVASCULAR: Regular rate and rhythm. Normal S1 and S2. No murmurs, rubs or gallops. ABDOMEN: Normoactive bowel sounds, soft, mild tenderness to palpation to lower abdomen with voluntary guarding. No rigidity, no tympani. GENITOURINARY: Peña catheter remains in place draining dark urine. EXTREMITIES: No edema. NEUROLOGIC: Awake, alert and oriented x 3. No focal motor deficits. LABORATORY DATA: WBC 5.7 with 63% neutrophils, hemoglobin 13, hematocrit 37, platelets 174. Sodium 138, potassium 4.2, chloride 105, bicarb 29, BUN 16, creatinine 0.7, glucose 89. Procalcitonin less than 0.05. Blood cultures with no growth to date. ASSESSMENT: The patient is a 66-year-old man who recently underwent cystoscopy with transurethral resection of bladder tumor for evaluation of gross hematuria secondary to bladder mass, who was subsequently found to have high-grade papillary urothelial carcinoma, who presented to [facility] with increased suprapubic pain and who was admitted to the general medical l[facility] for continued analgesic control. PLAN: 1. High-grade papillary urothelial carcinoma, status post cystoscopy, status post transurethral resection of bladder tumor. Input from Dr. Pike noted and greatly appreciated. The patient is scheduled to have removal of Peña catheter today as per Dr. Pike's progress note for spontaneous voiding trial. 2. Systemic inflammatory response syndrome with etiology likely secondary to genitourinary source given recent instrumentation. Procalcitonin level is less than 0.05. The patient remains on cefepime. Input from Dr. Moctezuma noted and greatly appreciated, and patient is scheduled for CT of the abdomen and pelvis to rule out pyelonephritis. He otherwise remains afebrile and with resolution of leukocytosis. 3. Acute kidney injury, resolved, with etiology likely secondary to prerenal azotemia. Continue with IV fluid hydration and continue to encourage PO intake. 4. Hepatitis C, newly diagnosed and untreated. The patient has followup arranged with Dr. Keller to evaluate for initiation of treatment. 5. Hyponatremia, resolved. 6. Heroin dependence. The patient has been sober for the past 2-1/2 to 3 weeks. The patient may resume Suboxone upon discharge. 7. Atrial fibrillation, status post cardioversion. The patient remains in normal sinus rhythm and is not on any anticoagulation therapy. 8. Prophylaxis. Continue with Protonix for gastrointestinal prophylaxis. Deep venous thrombosis prophylaxis is not indicated as patient is ambulatory. CODE STATUS: Full code. Oliver Tyler MD cc: [phone] TT: 01/16/2017 09:15:42 Confirmation # [id number] Dictation # [id number] MTDD
--- NOTE | 2017-01-16 09:38 | PN ---
DATE: 01/16/2017 The patient is afebrile. His urine is clear. His white count is 5700. He is complaining of constip ation. His abdomen is soft. I have ordered MiraLax. I would leave the Peña indwelling until I spe ak with Dr. Pike as to how long he wants the catheter to remain in postop. Please do not remove unless ordered by us. Donta Chavez MD cc: [phone] TT: 01/16/2017 09:38:22 Confirmation # [id number] Dictation # [id number] jn
[2017-01-16] MEDS: POLYETHYLENE GLYCOL 3350 17 GM/Dose PACKET PO SCH (10:41)
--- NOTE | 2017-01-16 15:02 | CT ---
PROCEDURE: CT Abdomen and Pelvis without intravenous contrast HISTORY: rule out pyelonephritis. Patient had recent TURP COMPARISON: 12/17/2016 TECHNIQUE: Without contrast. Contrast Dose: Radiation dose: Total exam DLP = 409 mGy-cm. This CT exam was performed using one or more of the following dose reduction techniques: Automated exposure control, adjustment of the mA and/or kV according to patient size, and/or use of iterative reconstruction technique. FINDINGS: LOWER THORAX: Minimal bibasilar atelectasis LIVER: Unremarkable. No gross lesion or ductal dilatation. GALLBLADDER AND BILE DUCTS: Small stones are layered in the gallbladder PANCREAS: Unremarkable. No gross lesion or ductal dilatation. SPLEEN: Unremarkable. ADRENALS: Unremarkable. No mass. KIDNEYS AND URETERS: There is no evidence of pyelonephritis or hydronephrosis. There is a 7 mm stone in the left kidney and a collection of stones measuring 8 mm in the lower pole of the right kidney. VASCULATURE: Unremarkable. No aortic aneurysm. BOWEL: There is a new right inguinal hernia that was not present on the prior study. There is a small amount of extraluminal air within the hernia and along the right lateral pelvic wall. This is consistent with focal perforation. Findings are best seen on images 140 through 155 APPENDIX: Unremarkable. Normal appendix. PERITONEUM: Unremarkable. No free fluid. No free air. LYMPH NODES: Unremarkable. No enlarged lymph nodes. BLADDER: There is a Peña catheter in the bladder. REPRODUCTIVE: Unremarkable. BONES: No acute fracture. OTHER FINDINGS: The findings were discussed with Dr. Oliver Tyler at 3 p.m. IMPRESSION: New right inguinal hernia with perforation producing a small amount of extraluminal air within the hernia and along the right pelvic wall
--- NOTE | 2017-01-16 15:47 | CP.PCM.CON ---
History of Present Illness - History of Present Illness History of Present Illness: Surgery Consult Dr. Rosas HPI: 66y/o M M w/ PMHx of afib s/p cardioversion, diverticulitis s/p Hartmanns and reversal presented to the ED 1 day after cystoscopy/TURBT w/ c/o increasing lower abd/suprapubic pain and gross hematuria. Pt was sent home w/ a Mccormick catheter in place and was scheduled for office f/u to have mccormick removed; however, pt couldn't wait due to the pain and decided to call 911. Pt reports decreased urine output since the procedure as well. Pt reports having subjective F/C, mild headache and constipation. Upon admission, pt was discovered to have GINA (BUN 36 and Cr 2.1), which resolved with IV fluids. Pt has newly diagnosed and untreated Hep C, currently in washout from heroine use to get treatment. CT Abd on 01/16 showed new R inguinal hernia w/ perforation producing a small amount of extraluminal air w/in the hernia and along the R pelvic wall. Pt was S&E today @bedside. Pt reports inproved abd pain and denies F/C, N/V, CP , palpitations, SOB, cough, but admits to constipation (last BM on Friday). PMHx: afib, diverticulosis, empyema, high grade papillary urothelial carcinoma, hepatitis C, GINA, COPD Meds: reviewed in chart NKDA PSHx: cardioversion, Rachele's procedure and reversal Social Hx: quit smoking 1 month ago, smoked 1 [id number], heroine user (last use 3 wks ago), drinks 3 12oz beers and 1 shot per day Fam Hx: father - , lung cancer Allergies: NKDA Review of Systems - Review of Systems All systems: reviewed and no additional remarkable complaints except (see HPI) Past Patient History - Infectious Disease Hx of Infectious Diseases: None - Past Medical History & Family History Past Medical History?: Yes Past Family History: Reviewed and not pertinent - Past Social History Smoking Status: Former Smoker Alcohol: > 2 Drinks/Day Drugs: Denies - CARDIAC Hx Atrial Fibrillation: Yes Hx Pacemaker: No - PULMONARY Hx Chronic Obstructive Pulmonary Disease (COPD): Yes Other/Comment: Empyema - NEUROLOGICAL Hx Paralysis: No - RENAL Hx Renal (Kidney) Cancer: Yes (high grade papillary urothelial carcinoma ) - HEMATOLOGICAL/ONCOLOGICAL Hx Hepatitis C: Yes - MUSCULOSKELETAL/RHEUMATOLOGICAL Hx Musculoskeletal Disorders: No - GASTROINTESTINAL Hx Colostomy: Yes - PSYCHIATRIC Other/Comment: substance abuse: active heroin user - SURGICAL HISTORY Hx Surgeries: Yes - ANESTHESIA Hx Anesthesia Reactions: No Hx Malignant Hyperthermia: No Meds Allergies/Adverse Reactions: Allergies Allergy/AdvReac Type Severity Reaction Status Date / Time No Known Allergies Allergy Verified 11/29/16 08:45 - Medications Medications: Current Medications Acetaminophen (Tylenol 325mg Tab) 650 mg PO Q4H PRN PRN Reason: Fever >100.5 F Sodium Chloride (Sodium Chloride 0.9%) 1,000 mls @ 125 mls/hr IV .Q8H [facility] Stop: 01/17/17 08:46 Last Admin: 01/16/17 04:03 Dose: 125 mls/hr Cefepime HCl (Maxipime 1gm) 1 gm in 100 mls @ 100 mls/hr IVPB Q12 ERICH PRN Reason: Protocol Last Admin: 01/15/17 22:44 Dose: 100 mls/hr Morphine Sulfate (Morphine) 3 mg IVP Q4H PRN PRN Reason: Pain, severe (8-10) Last Admin: 01/16/17 08:46 Dose: 3 mg Pantoprazole Sodium (Protonix Inj) 40 mg IVP DAILY [facility] Last Admin: 01/16/17 10:41 Dose: 40 mg Polyethylene Glycol (Miralax) 17 gm PO DAILY [facility] Last Admin: 01/16/17 10:41 Dose: 17 gm Physical Exam - Constitutional Appears: Non-toxic, No Acute Distress - Head Exam Head Exam: ATRAUMATIC, NORMAL INSPECTION - Eye Exam Eye Exam: Normal appearance - ENT Exam ENT Exam: Mucous Membranes Moist - Neck Exam Neck exam: Positive for: Normal Inspection - Respiratory Exam Respiratory Exam: NORMAL BREATHING PATTERN. absent: Accessory Muscle Use, Respiratory Distress - Cardiovascular Exam Cardiovascular Exam: absent: Bradycardia, Tachycardia - GI/Abdominal Exam GI & Abdominal Exam: Distended (minimal TTP RLQ), Soft. absent: Firm, Guarding , Rebound, Rigid Additional comments: R inguinal hernia, reducible, TTP - Exam Additional comments: mccormick in place - Extremities Exam Extremities exam: Positive for: normal inspection - Neurological Exam Neurological exam: Alert, Oriented x3 - Psychiatric Exam Psychiatric exam: Normal Affect, Normal Mood - Skin Skin Exam: Dry, Intact, Normal Color, Warm Results - Vital Signs Recent Vital Signs: Last Vital Signs Temp 98.7 F 01/16/17 08:00 Pulse 72 01/16/17 08:00 Resp 25 H 01/16/17 08:00 BP 128/80 01/16/17 08:00 Pulse Ox 95 01/16/17 08:00 - Labs Result Diagrams: 01/16/17 07:30 01/16/17 07:30 Labs: Laboratory Results - last 24 hr 01/15/17 01/16/17 01/16/17 07:57 07:30 07:30 WBC 5.7 D RBC 4.07 Hgb 13.1 L Hct 37.2 L MCV 91.4 MCH 32.2 MCHC 35.2 RDW 13.3 Plt Count 174 MPV 10.6 Gran % 63.1 Lymph % (Auto) 22.8 [place] % (Auto) 13.5 H Eos % (Auto) 0.4 L Baso % (Auto) 0.2 Gran # 3.57 Lymph # 1.3 [place] # 0.8 H Eos # 0.0 Baso # 0.01 Sodium 138 Potassium 4.2 Chloride 105 Carbon Dioxide 29 Anion Gap 8 L BUN 16 Creatinine 0.7 Est GFR ( Amer) > 60 Est GFR (Non-Af Amer) > 60 Random Glucose 89 Calcium 8.8 Total Bilirubin 1.2 AST 43 ALT 68 H Alkaline Phosphatase 72 Total Protein 6.2 Albumin 3.1 Globulin 3.1 Albumin/Globulin Ratio 1.0 L Procalcitonin < 0.05 L - Imaging and Cardiology CT scan - abdomen Status: Image reviewed by me, Report reviewed by me Assessment & Plan - Assessment and Plan (Free Text) Assessment: 66 y/o M w/ high grade papillary urothelial carcinoma s/p cystoscopy POD #3 found to have R inguinal hernia w/ micro perforation on CT Plan: - No emergent surgical intervention at this time - Will monitor closely w/ serial abdominal exams - Monitor vitals closely - F/U AM labs Pt seen and discussed w/ Dr. Ralph Ramirez DO PGY1
[2017-01-16] MEDS: Cefepime 1gm in NS 100ml 1 GM/100 ML BAG IVPB SCH ×2 (17:12→22:43)
--- NOTE | 2017-01-16 20:43 | CP.PCM.PN ---
Subjective - Date & Time of Evaluation Date of Evaluation: 01/16/17 Time of Evaluation: 10:15 - Subjective Subjective: Comfortable, less pain in the bladder, no fevers overnight. Objective - Vital Signs/Intake and Output Vital Signs (last 24 hours): Temp Pulse Resp BP Pulse Ox 98.7 F 72 20 101/67 95 01/16/17 16:00 01/16/17 16:00 01/16/17 16:00 01/16/17 16:00 01/16/17 16:00 - Medications Medications: Current Medications Acetaminophen (Tylenol 325mg Tab) 650 mg PO Q4H PRN PRN Reason: Fever >100.5 F Sodium Chloride (Sodium Chloride 0.9%) 1,000 mls @ 125 mls/hr IV .Q8H [facility] Stop: 01/17/17 08:46 Last Admin: 01/16/17 04:03 Dose: 125 mls/hr Cefepime HCl (Maxipime 1gm) 1 gm in 100 mls @ 100 mls/hr IVPB Q12 ERICH PRN Reason: Protocol Last Admin: 01/16/17 17:12 Dose: 100 mls/hr Metronidazole (Flagyl) 500 mg in 100 mls @ 100 mls/hr IVPB Q8 ERICH PRN Reason: Protocol Morphine Sulfate (Morphine) 3 mg IVP Q4H PRN PRN Reason: Pain, severe (8-10) Last Admin: 01/16/17 16:15 Dose: 3 mg Pantoprazole Sodium (Protonix Inj) 40 mg IVP DAILY [facility] Last Admin: 01/16/17 10:41 Dose: 40 mg Polyethylene Glycol (Miralax) 17 gm PO DAILY [facility] Last Admin: 01/16/17 10:41 Dose: 17 gm - Labs Labs: 01/16/17 07:30 01/16/17 07:30 - Constitutional Appears: Non-toxic, No Acute Distress - Head Exam Head Exam: NORMAL INSPECTION - ENT Exam ENT Exam: Mucous Membranes Moist - Neck Exam Neck Exam: absent: Lymphadenopathy, Meningismus - Respiratory Exam Respiratory Exam: Decreased Breath Sounds - Cardiovascular Exam Cardiovascular Exam: +S1, +S2 - GI/Abdominal Exam GI & Abdominal Exam: Soft, Tenderness (decreased, suprapubic area) Assessment and Plan - Assessment and Plan (Free Text) Plan: Assessment consider sepsis due to right inguinal hernia with perforation hepatitis C active heroin use bladder cancer Plan blood and urine cx are negative; CT A/P shows the right inguinal hernia and perforation - would need Surgical evaluation - will add Flagyl to the Cefepime will monitor clinically
[2017-01-16] MEDS: metroNIDAZOLE IV 500 mg/100 ml 500 MG/100 ML BAG IVPB SCH (21:22)
[2017-01-17] MEDS: Morphine 4 mg/ml ISec IVP PRN ×5 (01:53→21:17)
[2017-01-17] MEDS: metroNIDAZOLE IV 500 mg/100 ml 500 MG/100 ML BAG IVPB SCH ×3 (05:23→21:15)
[2017-01-17] MEDS: Sodium Chloride 0.9% 1,000 ML IV SCH ×2 (05:24→17:25)
[2017-01-17 07:27] LABS: ADD MANUAL DIFF? NO
[2017-01-17 07:34] LABS: BASO # 0.02 K/mm3 (0.0-2.0); BASO % 0.5 % (0.0-3.0); EOS # 0.1 (0.0-0.7); EOS % 1.5 % (1.5-5.0); GRAN # 2.01 (1.4-6.5); GRAN % 51.9 % (50.0-68.0); HEMATOCRIT 36.9 % (42.0-52.0); LYMPH # 1.3 (1.2-3.4); LYMPH % 33.5 % (22.0-35.0); MEAN CELL VOLUME 92.5 fL (80.0-105.0); MEAN CORPUSCULAR HEMOGLOBIN 31.6 pg (25.0-35.0); MEAN CORPUSCULAR HGB CONC 34.1 g/dl (31.0-37.0); MEAN PLATELET VOLUME 10.5 fl (7.0-11.0); MONO # 0.5 (0.1-0.6); MONO % 12.6 % (1.0-6.0); PLATELET COUNT 168 10^3/uL (120.0-450.0); RED CELL DISTRIBUTION WIDTH 13.3 % (11.5-14.5); WHITE BLOOD COUNT 3.9 10^3/ul (4.5-11.0)
[2017-01-17 07:43] LABS: ALKALINE PHOSPHATASE 70 U/L (38-133); ALT/SGPT 72 U/L (7-56); AST/SGOT 50 U/L (15-59); BLOOD UREA NITROGEN 12 mg/dL (7-21); CALCIUM 8.6 mg/dL (8.4-10.5); CARBON DIOXIDE 30 mmol/L (21-33); CHLORIDE 105 mmol/L (95-110); GFR AFRICAN-AMERICAN > 60; GLUCOSE,RANDOM 86 mg/dL (70-110); POTASSIUM 4.2 mmol/L (3.6-5.0); SODIUM 137 mmol/L (132-148); TOTAL PROTEIN 5.9 g/dL (5.8-8.3)
--- NOTE | 2017-01-17 09:48 | CP.PCM.PN ---
Subjective - Date & Time of Evaluation Date of Evaluation: 01/17/17 Time of Evaluation: 09:43 - Subjective Subjective: General surgery progress note for Moise Carrillo PGY1 Patient seen and examined at bedside this morning in conjunction with surgical team. No acute overnight events or new complaints. Denies chest pain, palpitations, SOB. Patient is s/p cystoscopy (POD#4). Objective - Vital Signs/Intake and Output Vital Signs (last 24 hours): Temp Pulse Resp BP Pulse Ox 98.7 F 58 L 18 123/79 96 01/17/17 08:07 01/17/17 08:07 01/17/17 08:07 01/17/17 08:07 01/17/17 08:07 Intake and Output: 01/17/17 01/17/17 06:59 18:59 Intake Total 1840 Output Total 2000 Balance -160 - Medications Medications: Current Medications Acetaminophen (Tylenol 325mg Tab) 650 mg PO Q4H PRN PRN Reason: Fever >100.5 F Cefepime HCl (Maxipime 1gm) 1 gm in 100 mls @ 100 mls/hr IVPB Q12 ERICH PRN Reason: Protocol Last Admin: 01/16/17 22:43 Dose: 100 mls/hr Metronidazole (Flagyl) 500 mg in 100 mls @ 100 mls/hr IVPB Q8 ERICH PRN Reason: Protocol Last Admin: 01/17/17 05:23 Dose: 100 mls/hr Morphine Sulfate (Morphine) 3 mg IVP Q4H PRN PRN Reason: Pain, severe (8-10) Last Admin: 01/17/17 07:02 Dose: 3 mg Pantoprazole Sodium (Protonix Inj) 40 mg IVP DAILY [facility] Last Admin: 01/16/17 10:41 Dose: 40 mg Polyethylene Glycol (Miralax) 17 gm PO DAILY [facility] Last Admin: 01/16/17 10:41 Dose: 17 gm - Labs Labs: 01/17/17 07:00 01/17/17 07:00 - Constitutional Appears: Non-toxic, No Acute Distress - Head Exam Head Exam: ATRAUMATIC, NORMAL INSPECTION, NORMOCEPHALIC - Eye Exam Eye Exam: EOMI, PERRL - ENT Exam ENT Exam: Mucous Membranes Moist - Respiratory Exam Respiratory Exam: Clear to Ausculation Bilateral. absent: Rales, Rhonchi, Wheezes - Cardiovascular Exam Cardiovascular Exam: RRR, +S1, +S2. absent: Gallop, Rubs - GI/Abdominal Exam GI & Abdominal Exam: Soft. absent: Distended, Firm, Guarding, Rigid, Tenderness , Rebound - Neurological Exam Neurological Exam: Alert, Awake, Oriented x3 - Psychiatric Exam Psychiatric exam: Normal Affect, Normal Mood - Skin Skin Exam: Dry, Intact, Normal Color, Warm Assessment and Plan - Assessment and Plan (Free Text) Plan: 66yo male with history of high grade papillary urothelial carcinoma s/p cystoscopy POD #4 found to have R inguinal hernia w/ micro perforation on CT -No acute surgical intervention recommended at this time -Will continue to monitor closely w/ serial abdominal exams -Recommend elective outpatient hernia repair upon discharge. Patient may follow up as an outpatient. -Continue present medical management as per primary/urology team Case discussed with attending, Dr. Ralph Larios DO PGY1
--- NOTE | 2017-01-17 09:58 | PN ---
DATE: 01/17/2017 The patient is in room 571, bed 1. There have been no acute events overnight. The patient does comp melba of some lower quadrant abdominal pain. No nausea, vomiting, no diarrhea, no fever or chills. PHYSICAL EXAMINATION: VITAL SIGNS: Temperature of 98.7, pulse rate of 58, blood pressure 123/79, respiratory rate of 18 wi th an O2 saturation of 96% on room air. HEENT: PERRLA, EOMI. No icterus. NECK: Supple. There is a full range of motion. There is no jugular venous distention. No bruits a re present. LUNGS: Clear to auscultation and percussion bilaterally. HEART: With a regular rate and rhythm. No murmurs, rubs, or gallops. ABDOMEN: Soft. There is some tenderness in both lower quadrants, left more than right, although the hernia with perforation is on the right. EXTREMITIES: Show no deformities, no edema. NEUROLOGIC: Cranial nerves II-XII are intact. Deep tendon reflexes are symmetrical and motor is 5/5 bilaterally. GENITOURINARY: Of note, the Peña catheter is draining clear yellow urine. LABORATORY VALUES: A WBC of 3.9, hemoglobin and hematocrit of 12.6 and 36.9. Chemistry shows an ani on gap of 6, ALT of 72, which is down from 83 and a procalcitonin of 0.05. Urinalysis done on 01/14 w as consistent with a urinary tract infection. Blood cultures x 2 on 01/15 show no growth after [address] and urine culture also showed no growth. IMPRESSION: At this time is a high-grade papillary urothelial carcinoma, status post cystoscopy, a r ight inguinal hernia with a small perforation. Prerenal azotemia, hepatitis C, newly diagnosed and u ntreated. The patient will be following up with Dr. Keller. Hyponatremia, which has resolved, heroin dependence. The patient has been sober the last 2-1/2 to 3 weeks. Atrial fibrillation, status post cardioversion. The patient remains in normal sinus rhythm. We will continue to monitor the patient and will discuss with Dr. Rene Rosas, surgeon. Joe Tyler MD cc: [id number] TT: 01/17/2017 09:57:38 Confirmation # [id number] Dictation # [id number]
--- NOTE | 2017-01-17 10:29 | PQF SEPSIS ---
This form is a permanent part of the medical record Dr. Tyler, Patient was evaluated by ID solution consultant during this admission and he noted that patient has sepsis possibly from UTI or from perforated inguinal hernia. Please document if you agree that the clinical picture includes sepsis as a diagnosis present on admission, is ruled out, is undetermined. Clarification of your documentation is requested to better reflect the severity of illness and intensity of treatment of your patient. Indicators present [] Temp < 96.8 or > 100.4 [X] WBC count > 12,000/mm3 or <000/mm3 or 10% immature neutrophils [] Heart Rate > 90 [] Respiratory Rate > 20 [] Fever or hypothermia [X] Chills [] Positive blood cultures [] Hypotension [] Metabolic acidosis (Elevated lactate level, anion gap or reduced blood pH) [] Acute confusion /Altered Mental Status [] Shock [] Other: [] Location in the medical record that reflects the above clinical findings: [] Treatment Provided: [] PHYSICIAN'S RESPONSE Based on your medical judgment of the clinical indicators outlined above, are you treating this patient for a known or suspected: [] Sepsis / Septicemia Please specify organism if known [] [X] SIRS (Systemic Inflammatory Response Syndrome) [] Severe Sepsis (Sepsis with Associated Organ Dysfunction) [] Fever of Unknown Origin [] Other, please indicate: [] [] If Unable to Determine, please check the box, sign and date. Present On Admission (POA) Indicator: [X] Present at the time of admission [] Not present at the time of admission [] Clinically Undetermined In responding to this query, please exercise your independent professional judgment. The fact that a question is asked does not imply that any particular answer is desired or expected. Thank you for your clarification on this documentation. If you have any questions please call:[ ] * Thank you, [ ]Pedro Arguelles [facility] #[id number] senior software tester SILKE
--- NOTE | 2017-01-17 11:47 | PN ---
DATE: 01/17/2017 SUBJECTIVE: The patient is seen in his room. PHYSICAL EXAMINATION: GENERAL: He is awake, alert and in no acute distress. VITAL SIGNS: He is afebrile, temp of 98.7, pulse of 58, BP 123/79, respirations 18. ABDOMEN: Soft, nontender, nondistended. There is no rebound. There is no guarding. There is no CV A tenderness. There is no suprapubic tenderness. The patient does complain of some mild fullness in the right inguinal region. The patient had a CT scan showing a new right inguinal hernia with quest ionable microperforation. He is being followed by Dr. Rosas from general surgery and reportedly th e plan is to observe this for now. Patient also has a history of untreated hepatitis C as well as bl adder cancer, recent TURBT, no path report available yet. However, by verbal report it was high grad e transitional cell carcinoma. We will await the official report. LABORATORY EXAM: WBC count has come down to 3.9, hemoglobin 12.6. His creatinine, which had been el evated, is now back to normal with a GFR greater than 60. Microbiology showed urine culture was nega tive. Blood cultures are negative. IMPRESSION AND PLAN: A Peña catheter is still in place draining clear-colored urine. The patient's dehydration has resolved with intravenous hydration and his kidney function is now back to normal. He has no peritoneal signs. I will need to discuss the CT findings with general surgery, Dr. Rosas , to see the plan. Urologically, the plan will be to remove the Peña catheter and the patient can b e discharged home when he is voiding from the urology standpoint, but we will need to see the plan re garding the CT hernia finding with general surgery. The patient should follow up in my office after discharge for further plans regarding his bladder cancer and we are awaiting the final pathology repo rt. Sunny Pike MD cc: [phone] TT: 01/17/2017 11:46:38 Confirmation # [id number] Dictation # [id number] jn
[2017-01-17] MEDS: POLYETHYLENE GLYCOL 3350 17 GM/Dose PACKET PO SCH (11:54)
[2017-01-17] MEDS: Cefepime 1gm in NS 100ml 1 GM/100 ML BAG IVPB SCH ×2 (11:54→21:16)
[2017-01-17 16:59] VITALS: RESP 20
--- NOTE | 2017-01-17 18:09 | CP.PCM.PN ---
Subjective - Date & Time of Evaluation Date of Evaluation: 01/17/17 Time of Evaluation: 10:10 - Subjective Subjective: Less pain in the suprapubic and inguinal areas. No fevers. Objective - Vital Signs/Intake and Output Vital Signs (last 24 hours): Temp Pulse Resp BP Pulse Ox 98.2 F 78 20 107/70 99 01/17/17 16:00 01/17/17 16:00 01/17/17 16:00 01/17/17 16:00 01/17/17 16:00 Intake and Output: 01/17/17 01/17/17 06:59 18:59 Intake Total 1840 Output Total 2000 Balance -160 - Medications Medications: Current Medications Acetaminophen (Tylenol 325mg Tab) 650 mg PO Q4H PRN PRN Reason: Fever >100.5 F Cefepime HCl (Maxipime 1gm) 1 gm in 100 mls @ 100 mls/hr IVPB Q12 ERICH PRN Reason: Protocol Last Admin: 01/17/17 11:54 Dose: 100 mls/hr Metronidazole (Flagyl) 500 mg in 100 mls @ 100 mls/hr IVPB Q8 ERICH PRN Reason: Protocol Last Admin: 01/17/17 15:10 Dose: 100 mls/hr Morphine Sulfate (Morphine) 3 mg IVP Q4H PRN PRN Reason: Pain, severe (8-10) Last Admin: 01/17/17 17:23 Dose: 3 mg Pantoprazole Sodium (Protonix Inj) 40 mg IVP DAILY [facility] Last Admin: 01/17/17 11:54 Dose: 40 mg Polyethylene Glycol (Miralax) 17 gm PO DAILY [facility] Last Admin: 01/17/17 11:54 Dose: 17 gm - Labs Labs: 01/17/17 07:00 01/17/17 07:00 - Constitutional Appears: Non-toxic, No Acute Distress - Head Exam Head Exam: NORMAL INSPECTION - ENT Exam ENT Exam: Mucous Membranes Moist - Neck Exam Neck Exam: absent: Lymphadenopathy, Meningismus - Respiratory Exam Respiratory Exam: Decreased Breath Sounds - Cardiovascular Exam Cardiovascular Exam: +S1, +S2 - GI/Abdominal Exam GI & Abdominal Exam: Soft. absent: Tenderness Assessment and Plan - Assessment and Plan (Free Text) Plan: Assessment consider sepsis due to right inguinal hernia with perforation hepatitis C active heroin use bladder cancer Plan blood and urine cx are negative; CT A/P shows the right inguinal hernia and perforation - follow up Surgical evaluation - continue Flagyl and Cefepime will continue to monitor clinically
[2017-01-18] MEDS: Morphine 4 mg/ml ISec IVP PRN ×3 (01:57→10:37)
[2017-01-18] MEDS: metroNIDAZOLE IV 500 mg/100 ml 500 MG/100 ML BAG IVPB SCH ×2 (05:28→13:56)
[2017-01-18 07:45] VITALS: TEMP 98.8
[2017-01-18 08:22] LABS: ADD MANUAL DIFF? NO
[2017-01-18 08:26] LABS: BASO # 0.01 K/mm3 (0.0-2.0); BASO % 0.3 % (0.0-3.0); EOS # 0.1 (0.0-0.7); EOS % 3.5 % (1.5-5.0); GRAN # 1.28 (1.4-6.5); GRAN % 40.7 % (50.0-68.0); HEMATOCRIT 36.6 % (42.0-52.0); LYMPH # 1.3 (1.2-3.4); LYMPH % 42.4 % (22.0-35.0); MEAN CELL VOLUME 92.4 fL (80.0-105.0); MEAN CORPUSCULAR HEMOGLOBIN 32.3 pg (25.0-35.0); MEAN PLATELET VOLUME 10.5 fl (7.0-11.0); MONO # 0.4 (0.1-0.6); MONO % 13.1 % (1.0-6.0); PLATELET COUNT 187 10^3/uL (120.0-450.0); RED CELL DISTRIBUTION WIDTH 13.1 % (11.5-14.5); WHITE BLOOD COUNT 3.1 10^3/ul (4.5-11.0)
[2017-01-18 08:50] LABS: ALKALINE PHOSPHATASE 71 U/L (38-133); ALT/SGPT 71 U/L (7-56); AST/SGOT 47 U/L (15-59); BILIRUBIN,TOTAL 0.7 mg/dL (0.2-1.3); BLOOD UREA NITROGEN 11 mg/dL (7-21); CALCIUM 8.5 mg/dL (8.4-10.5); CARBON DIOXIDE 29 mmol/L (21-33); CHLORIDE 105 mmol/L (95-110); GFR AFRICAN-AMERICAN > 60; GLUCOSE,RANDOM 87 mg/dL (70-110); POTASSIUM 4.2 mmol/L (3.6-5.0); SODIUM 138 mmol/L (132-148); TOTAL PROTEIN 5.8 g/dL (5.8-8.3)
[2017-01-18] MEDS: Cefepime 1gm in NS 100ml 1 GM/100 ML BAG IVPB SCH (09:40)
[2017-01-18] MEDS: POLYETHYLENE GLYCOL 3350 17 GM/Dose PACKET PO SCH (09:40)
--- NOTE | 2017-01-18 11:07 | CP.PCM.PN ---
Subjective - Date & Time of Evaluation Date of Evaluation: 01/18/17 Time of Evaluation: 08:00 - Subjective Subjective: Surgery: Dr. Rosas Pt seen and examined. No acute overnight events. States he's feeling a lot better. Admits to some discomfort 2/2 mccormick but otherwise denies pain. Denies N/ v, F/C. States he's tolerating a regular diet and having regular BMs. Objective - Vital Signs/Intake and Output Vital Signs (last 24 hours): Temp Pulse Resp BP Pulse Ox 98.8 F 50 L 20 132/87 97 01/18/17 07:30 01/18/17 07:30 01/18/17 07:30 01/18/17 07:30 01/18/17 07:30 Intake and Output: 01/18/17 01/18/17 06:59 18:59 Intake Total 840 Output Total 700 Balance 140 - Medications Medications: Current Medications Acetaminophen (Tylenol 325mg Tab) 650 mg PO Q4H PRN PRN Reason: Fever >100.5 F Cefepime HCl (Maxipime 1gm) 1 gm in 100 mls @ 100 mls/hr IVPB Q12 ERICH PRN Reason: Protocol Last Admin: 01/18/17 09:40 Dose: 100 mls/hr Metronidazole (Flagyl) 500 mg in 100 mls @ 100 mls/hr IVPB Q8 ERICH PRN Reason: Protocol Last Admin: 01/18/17 05:28 Dose: 100 mls/hr Morphine Sulfate (Morphine) 3 mg IVP Q4H PRN PRN Reason: Pain, severe (8-10) Last Admin: 01/18/17 10:37 Dose: 3 mg Pantoprazole Sodium (Protonix Inj) 40 mg IVP DAILY [facility] Last Admin: 01/18/17 09:40 Dose: 40 mg Polyethylene Glycol (Miralax) 17 gm PO DAILY [facility] Last Admin: 01/18/17 09:40 Dose: 17 gm - Labs Labs: 01/18/17 07:00 01/18/17 07:00 - Constitutional Appears: Well, No Acute Distress - Head Exam Head Exam: ATRAUMATIC, NORMOCEPHALIC - Eye Exam Eye Exam: Normal appearance - ENT Exam ENT Exam: Mucous Membranes Moist - Respiratory Exam Respiratory Exam: NORMAL BREATHING PATTERN - Cardiovascular Exam Cardiovascular Exam: RRR - GI/Abdominal Exam GI & Abdominal Exam: Soft. absent: Distended, Guarding, Tenderness, Rebound - Extremities Exam Extremities Exam: absent: Tenderness - Neurological Exam Neurological Exam: Alert, Awake, Oriented x3 - Skin Skin Exam: Dry, Intact, Warm Assessment and Plan - Assessment and Plan (Free Text) Assessment: 66M with localized air as seen on CT scan s/p cystoscopy Plan: - pt has remained asymptomatic and abdomen continues to be benign - tolerating a diet and having BMs - no surgical intervention needed at this time - Mccormick management as per Urology recs - can repeat CT abdomen before DC to re-eval - d/w Dr. Ralph Osorio, PGY-2 Surgery
--- NOTE | 2017-01-18 14:42 | CT ---
PROCEDURE: CT Abdomen and Pelvis without intravenous contrast HISTORY: air in abdomen COMPARISON: 01/16/2017 TECHNIQUE: Without contrast.. Contrast Dose: Radiation dose: Total exam DLP = 450 mGy-cm. This CT exam was performed using one or more of the following dose reduction techniques: Automated exposure control, adjustment of the mA and/or kV according to patient size, and/or use of iterative reconstruction technique. FINDINGS: LOWER THORAX: Unremarkable. LIVER: Unremarkable. No gross lesion or ductal dilatation. GALLBLADDER AND BILE DUCTS: Unremarkable. PANCREAS: Unremarkable. No gross lesion or ductal dilatation. SPLEEN: Unremarkable. ADRENALS: Unremarkable. No mass. KIDNEYS AND URETERS: Unremarkable. No hydronephrosis. No solid mass. Nonobstructing stones are seen in both kidneys VASCULATURE: Unremarkable. No aortic aneurysm. BOWEL: There is a decrease in the amount of intraperitoneal air seen along the right side of the pelvis. There is still a small amount of extraluminal gas in the right inguinal hernia seen on image 153 series 2. A segment of small bowel is seen in the hernia sac. There is no associated obstruction. APPENDIX: Unremarkable. Normal appendix. PERITONEUM: Unremarkable. No free fluid. No free air. LYMPH NODES: Unremarkable. No enlarged lymph nodes. BLADDER: A Peña catheter is seen in the bladder. REPRODUCTIVE: Unremarkable. BONES: No acute fracture. OTHER FINDINGS: None. IMPRESSION: Decreased retroperitoneal air in the right side of pelvis. There is a small amount of persistent gas in the right inguinal hernia sac, significance uncertain
[2017-01-18 15:50] VITALS: BP 116/70; PULSE 53; O2SAT 95
--- NOTE | 2017-01-18 16:27 | PN ---
DATE: 01/18/2017 The patient is in bed in no acute distress. PHYSICAL EXAMINATION: VITAL SIGNS: Temperature is 98, blood pressure is 130/80 and respiratory rate of 20. HEENT: Unremarkable. NECK: Supple. LUNGS: Have decreased breath sounds. HEART: Normal S1, S2. LABORATORY EXAMINATION: Reveals a white count of 3.1, hemoglobin of 12 and platelets of 187. Chemis tries are noted for a procalcitonin less than 0.05. Urinalysis is noted. Microbiology reveals the b lood cultures are negative. Urine cultures are negative. The patient is currently on Flagyl and cef epime. ASSESSMENT AND PLAN: This is a 66-year-old with sepsis with inguinal hernia perforation, hepatitis C , active intravenous drug abuse, bladder cancer with negative cultures, on cefepime and Flagyl, awai thomg repeat CAT scan results, which was done today. Dr. note is reviewed. Will follow with yo u. Rom Ortiz MD cc: [id number] TT: 01/18/2017 16:26:23 Confirmation # [id number] Dictation # [id number]
--- NOTE | 2017-01-18 16:45 | PN ---
DATE: 01/18/2017 The patient is in room 571, bed 1. He is sitting up in the chair, having his lunch. The patient den ies any symptoms and there have been no acute events overnight. PHYSICAL EXAMINATION: VITAL SIGNS: Temperature 98.8, pulse rate 50, blood pressure 132/87, respirations 20 and O2 saturati on 97% on room air. HEENT: Unremarkable. NECK: Supple. No bruits or adenopathy are present. LUNGS: Clear bilaterally. HEART: Regular rate and rhythm. No murmurs, rubs or gallops. ABDOMEN: Soft. It is nontender. Bowel sounds are normoactive. NEUROLOGIC: The patient is intact. LABORATORY DATA: Hemoglobin and hematocrit are 12.8 and 36.6. WBC is at 3.1 with a shift to the rig ht. Chemistry is unremarkable with the exception of an anion gap of 8, which is improving. A repeat abdomen and pelvis CT has been performed. Surgery at this time is saying that no intervention is re quired. IMPRESSION AT THIS TIME: 1. Bladder carcinoma. 2. Perforations in the abdomen with a small collection of air. If the CT scan has not gotten worse, we will most likely discharge the patient on p.o. antibiotics. Joe Tyler MD cc: [id number] TT: 01/18/2017 16:44:19 Confirmation # [id number] Dictation # [id number]
--- NOTE | 2017-01-21 09:47 | DS ---
ADMITTING DIAGNOSIS: Systemic inflammatory response syndrome secondary to genitourinary source. DISCHARGE DIAGNOSIS: Perforated bowel with extraluminal air to the right pelvic wall. SECONDARY DIAGNOSES: High-grade papillary urothelial carcinoma of the bladder, hepatitis C, acute ki dney injury, hyponatremia, heroin dependence; atrial fibrillation, status post cardioversion. CONSULTATIONS: Dr. Ortiz (infectious disease), Dr. Pike (urology), Dr. Rosas (general surgery ). HISTORY OF PRESENT ILLNESS: The patient is a 66-year-old man with a past medical history of newly di agnosed high-grade papillary urothelial carcinoma and hepatitis C (untreated) who presented to [facility] Emergency Department 1 day after undergoing cystoscopy with TURBT for evaluation of gross hematuria. The patient was closely followed by Dr. Chavez of urology for his complaint of gross hematuria and was found to have a bladder mass with subsequent arrangements made to schedule for cyst oscopy with biopsy which the patient successfully underwent on Friday (01/13/2017). The final pathol ogy report demonstrated high-grade papillary urothelial carcinoma. The patient was [facility] and no complications were noted at the time of procedure. Shortly after discharge to home, he deve loped mild suprapubic tenderness, and over the course of the next several hours he developed increasi ng discomfort associated with subjective fevers and chills. He also reported persistent drainage of initially bloody urine which subsequently changed to tea-colored urine. Given the intensity of the p ain, he called 911 and was brought to the Emergency Department for further evaluation. Upon arrival to the ED, he was noted to be afebrile and hemodynamically stable with initial laboratory studies dem onstrating leukocytosis with a WBC of 13.7 with left shift as well as acute kidney injury with a BUN of 36 and creatinine of 2.1. The patient was started on IV antibiotics, IV fluids and subsequently a dmitted to the general medical luther for continued management. HOSPITAL COURSE: Upon admission to the general medical luther, the patient was evaluated by Dr. Glendy cuevas nd recommendations were made to maintain the Peña in place as the patient was draining urine and was otherwise stable from the urologic standpoint. The patient was also evaluated by Dr. Moctezuma and was started on cefepime. Over the initial 24 hours since admission, the patient was noted to defervesce and demonstrated the resolution of his leukocytosis. A CT of the abdomen and pelvis which was ordere d so as to rule out pyelonephritis demonstrated a right-sided inguinal hernia with a small amount of extraluminal air within the hernia along the right lateral pelvic wall consistent with focal perforat ion. Dr. Rosas of general surgery was consulted and after reviewing the films and examining the pa tient, given the fact that the patient was tolerating p.o. intake and did not appear to have an acute surgical abdomen, no recommendations were made for acute surgical intervention. The following day, the patient had a repeat CT of abdomen performed which demonstrated decreased retroperitoneal air in the right side of the pelvis and, given the patient's clinical stability, he was deemed stable for di scharge to home. CONDITION: Good, improved. DISPOSITION: To home. DISCHARGE MEDICATIONS: [place] 3 fatty acid 1 capsule daily, multivitamin 1 capsule daily, Protonix 40 mg p.o. daily and Suboxone 4 mg sublingual b.i.d. DISCHARGE INSTRUCTIONS: The patient was advised that if he has any recurrence of his symptoms or any development of severe abdominal pain, distention, fevers, chills or rigors to present to the nearest Emergency Department immediately. FOLLOWUP: The patient to follow up with Dr. Pike of urology as scheduled. The patient to follow up with Dr. Keller of gastroenterology as scheduled. The patient to follow up with his PMD within 1 week of discharge. Oliver Tyler MD cc: [phone] TT: 01/21/2017 09:47:04 shayy
--- NOTE | 2017-01-24 09:09 | PQF GENQUE ---
01/24/17 Dr. Pedro Tyler, Patient has UTI with Peña catheter. Please clarify whether the UTI is, or is not, related to the Peña. Thank you. Clarification of your documentation is requested to better reflect the severity of illness and intensity of treatment of your patient. Indicators present [] Specify: [] [] Specify: [] [] Specify: [] [] Specify: [] Location in the medical record that reflects the above clinical findings: [] Treatment Provided: [] PHYSICIAN'S RESPONSE Based on your medical judgment of the clinical indicators outlined above please clarify the following: [] Practitioner response [] If unable to determine, please check the box, sign and date. Present On Admission (POA) Indicator: [] Present at the time of admission [] Not present at the time of admission [] Clinically Undetermined In responding to this query, please exercise your independent professional judgment. The fact that a question is asked does not imply that any particular answer is desired or expected. Thank you for your clarification on this documentation. If you have any questions please call:[ ] * Thank you, [ ] terrazzo laborer SILKE
--- NOTE | 2017-01-27 09:18 | PQF GENQUE ---
01/27/17 Dr. Pedro Tyler, Please document whether or not this patient's UTI is due to the Mccormick catheter. Thank you. Clarification of your documentation is requested to better reflect the severity of illness and intensity of treatment of your patient. Indicators present [] Specify: [] [] Specify: [] [] Specify: [] [] Specify: [] Location in the medical record that reflects the above clinical findings: [] Treatment Provided: [] PHYSICIAN'S RESPONSE Based on your medical judgment of the clinical indicators outlined above please clarify the following: [x] Practitioner response ------- the patient's UTI is likely secondary to his recent urologic procedure with subsequent placement of mccormick catheter [] If unable to determine, please check the box, sign and date. Present On Admission (POA) Indicator: [x] Present at the time of admission [] Not present at the time of admission [] Clinically Undetermined In responding to this query, please exercise your independent professional judgment. The fact that a question is asked does not imply that any particular answer is desired or expected. Thank you for your clarification on this documentation. If you have any questions please call:[ ] * Thank you, [ ] quality assurance manager SIKLE
== END 2017-01-18 18:58 | disposition home or self-care (01) | DRG 698 ==
LOC: ED 19:42 → OBSVTOIN 01-15 01:21 → ERH 01-15 01:21 → 5RSO 01-15 04:13
PROVIDERS: ADMIT Student in an Organized Health Care Education/Training Program; ATTEND Student in an Organized Health Care Education/Training Program
DX: T83.518A Infection and inflammatory reaction due to other urinary catheter, initial encounter (principal); K63.1 Perforation of intestine (nontraumatic); N17.9 Acute kidney failure, unspecified; R65.10 Systemic inflammatory response syndrome (SIRS) of non-infectious origin without acute organ dysfunction; I48.91 Unspecified atrial fibrillation; C67.9 Malignant neoplasm of bladder, unspecified; E87.1 Hypo-osmolality and hyponatremia; F11.20 Opioid dependence, uncomplicated; J44.9 Chronic obstructive pulmonary disease, unspecified; N39.0 Urinary tract infection, site not specified; K57.92 Diverticulitis of intestine, part unspecified, without perforation or abscess without bleeding; B19.20 Unspecified viral hepatitis C without hepatic coma; K40.90 Unilateral inguinal hernia, without obstruction or gangrene, not specified as recurrent; E86.0 Dehydration; R31.0 Gross hematuria; Z87.891 Personal history of nicotine dependence; K59.00 Constipation, unspecified; Z80.1 Family history of malignant neoplasm of trachea, bronchus and lung; Z85.528 Personal history of other malignant neoplasm of kidney; Z90.49 Acquired absence of other specified parts of digestive tract; R40.2412 Glasgow coma scale score 13-15, at arrival to emergency department

== ENCOUNTER 2017-06-02 07:20 | Day surgery (SDC) | payer MEDICARE, OTHER ==
[2017-06-02 07:47] VITALS: BMI 25.5
[2017-06-02] MEDS ORDERED: Iohexol 240 (50 ml) ONE (08:35)
[2017-06-02] MEDS ORDERED: cefTRIAXone (Rocephin) 1 gm Inj ONE (08:35)
[2017-06-02] MEDS ORDERED: Propofol 10 mg/ml Inj (20 ML) ONE ×2 (08:56→09:17)
[2017-06-02] MEDS ORDERED: Lidocaine 1% Inj (20ml) ONE (08:56)
[2017-06-02] MEDS ORDERED: Midazolam 2 MG/2 ML VIAL ONE (08:56)
[2017-06-02] MEDS ORDERED: Lidocaine 2% Jelly (Uro-Jet) ONE (09:52)
[2017-06-02] MEDS: HYDROmorphone 1 mg/ml ISec IVP PRN ×2 (09:53→10:25)
[2017-06-02] MEDS ORDERED: Lactated Ringer's 1,000 ML IV SCH (10:00)
[2017-06-02] MEDS ORDERED: HYDROmorphone 1 mg/ml ISec ONE (10:21)
[2017-06-02 11:09] VITALS: RESP 18; TEMP 98.8
[2017-06-02 11:31] VITALS: BP 130/94; PULSE 90; O2SAT 96
--- NOTE | 2017-06-03 09:45 | OP ---
PROCEDURE DATE: 06/02/2017 PREOPERATIVE DIAGNOSIS Bladder cancer history. POSTOPERATIVE DIAGNOSIS Bladder cancer history. PROCEDURES Cystoscopy, bladder biopsies, and fulguration. ATTENDING SURGEON: Dr. Sunny Pike. TYPE OF ANESTHESIA: General. SPECIMENS: Bladder biopsies, was sent pathology. DRAINS: A 20-Beninese two-way Peña catheter. COMPLICATIONS: There were none. OPERATIVE FINDINGS: After informed consent was obtained, the patient was taken to the operating room and placed in operating table. Anesthesia was administered. The patient was then placed in dorsolithotomy position and prepped, draped in usual sterile fashion. The patient received intravenous antibiotics prior to start of the procedure. A 21-Beninese cystoscope was placed in the patient's urethra and advanced proximally under direct vision until the bladder was entered. A full survey inspection of bladder was then performed, which revealed multiple raised erythematous patches. There was no obvious papillary tumor. There was some regular areas of erythema, where prior tumor had been resected. Both ureteral orifices were visualized and were none evolved in any of the suspicious areas. There were no stones or other foreign bodies noted. At this point, a cold cup biopsy forceps was passed. Biopsies were taken from the posterior wall of some of the raised regular erythematous mucosa. Biopsies were sent to pathology. Second area of biopsy was taken on the right floor adjacent to prior tumor resection site of ragged raised erythematous patch of mucosa. At this point above, the electrode was then passed. The biopsy sites were cauterized. The Bovie was then used to fulgurated some of the other areas of raised erythema. The patient had BCG treatment in the past and it is possible that this is reactive cystitis or possibly carcinoma in situ, but we will await the results of the biopsies. Final inspection was made. There was complete hemostasis from the biopsy sites. There was no active bleeding noted. There were no untreated suspicious areas. At this point, the procedure was complete, the bladder was drained, cystoscope was removed. Exam of the urethra was within normal limits. A 20-Beninese two-way Peña catheter was passed and placed to straight bladder drainage. The patient tolerated procedure well and was returned to the supine position and taken to the recovery room awake and in stable condition. Sunny Pike MD
== END 2017-06-02 12:30 | disposition home or self-care (01) ==
LOC: SDS 07:20
PROVIDERS: ATTEND Urology
DX: C67.9 Malignant neoplasm of bladder, unspecified (principal); K75.9 Inflammatory liver disease, unspecified; F17.200 Nicotine dependence, unspecified, uncomplicated; F19.10 Other psychoactive substance abuse, uncomplicated
CPT/HCPCS: 52204; 88305; C1758; J0696; J1170; J2250; J2405; J2704; J3010; J7120 ×2; Q9966